=== PATIENT | male | born 1950 | race Hispanic/Latino ===

== ENCOUNTER 2017-10-16 16:05 | Inpatient (IN) | payer OTHER, MEDICARE ==
[~2017-10-16] VITALS: Ht 180.3 cm; Wt 81.6 kg
[2017-10-16] MEDS: SUCRALFATE 1 GM TAB PO SCH (06:31)
[~2017-10-16 16:05] MED LIST: ATRIPLA TABLET1 TAB PO; BACTRIM DS TAB1 EACH PO; CARAFATE1 GM PO; DIFLUCAN200 MG PO; GLIPIZIDE-METF1 EACH PO; GLYBURID-METFO1 EACH PO; LISINOPRIL10 MG PO; MEN'S ONE DAIL1 EACH PO; OMEPRAZOLE40 MG PO; PANTOPRAZOLE SO40 MG PO; PHENERGAN25 MG/1 M1 PO; STRIBILD TABLE1 EACH PO
[2017-10-16 17:11] LABS: CLARITY,URINE CLOUDY (CLEAR); COLOR,URINE YELLOW (YELLOW); KETONES,URINE NEGATIVE (NEGATIVE); LEUKOCYTE ESTERASE ,URINE 1+ (NEGATIVE); NITRITE,URINE NEGATIVE (NEGATIVE); PROTEIN,URINE DIPSTICK 1+ (NEGATIVE)
[2017-10-16 17:12] LABS: BILIRUBIN,URINE NEGATIVE (NEGATIVE); URINE UROBILINOGEN 0.2 mg/dL (0.2 - 1)
[2017-10-16 17:16] LABS: BACTERIA,URINE MANY /HPF
[2017-10-16 17:28] VITALS: BP 124/71
[2017-10-16 17:38] VITALS: BP 124/71
[2017-10-16 17:56] LABS: BASOPHILS % 0.3 % (0.0-1.0); EOSINOPHILS % 0.1 % (0.0-6.0); HEMATOCRIT 36.7 % (38.2-49.6); HEMOGLOBIN 12.4 g/dL (14.0-18.0); LYMPHOCYTES # (AUTO) 0.7 (1.0-3.2); LYMPHOCYTES % 4.3 % (18.0-39.1); MEAN CORPUSCULAR HEMOGLOBIN 29.2 pg (28-32); MEAN CORPUSCULAR HGB CONC 33.8 g/dL (31-35); MEAN CORPUSCULAR VOLUME 86.4 fL (81-99); MONOCYTES % 6.8 % (4.4-11.3); NEUTROPHILS # (AUTO) 13.4 (2.1-6.9); PLATELET COUNT 180 x10e3/uL (140-360); RED BLOOD COUNT 4.25 x10e6/uL (4.3-5.7); RED CELL DISTRIBUTION WIDTH 13.6 % (11.7-14.4)
[2017-10-16] MEDS: SODIUM CHLORIDE 0.9% 1000ML 1,000 ML IV SCH (17:59)
[2017-10-16] MEDS ORDERED: PROMETHAZINE HCL (IM) 25 MG/ML VIAL IM PRN (18:00)
[2017-10-16 18:16] LABS: ALANINE AMINOTRANSFERASE 12 IU/L (0-55); ALBUMIN 3.5 g/dL (3.5-5.0); ALBUMIN/GLOBULIN RATIO 0.9 (0.8-2.0); ALKALINE PHOSPHATASE 68 IU/L (40-150); ANION GAP 11.8 mmol/L (8-16); BLOOD UREA NITROGEN 14 mg/dL (7-26); BUN/CREATININE RATIO 12 (6-25); CARBON DIOXIDE 22 mmol/L (22-29); CHLORIDE 101 mmol/L (98-107); CREATININE, SERUM 1.17 mg/dL (0.72-1.25); EST GLOMERULAR FILTRATION RATE > 60 ML/MIN (60-); GLUCOSE 133 mg/dL (74-118); POTASSIUM 3.8 mmol/L (3.5-5.1); SODIUM 131 mmol/L (136-145)
[2017-10-16 18:27] LABS: ERYTHROCYTE SEDIMENTATION RATE 36 mm/hr (0-13)
[2017-10-16 20:34] VITALS: BP 132/66
[2017-10-16] MEDS ORDERED: MEROPENEM 1GRAM 1 GM in SODIUM CHLORIDE 0.9% 100 ML 100 ML IV SCH (21:00)
--- NOTE | 2017-10-16 21:32 | History and Physical ---
REASON FOR CONSULTATION: Fever, chills, abdominal pain. HISTORY OF PRESENT ILLNESS: This is a patient who is a well-known to me 67-year-old gentleman with history of HIV, history of hepatitis C. The patient comes into my office today with fever and chills for 3 days, pain in his back bilaterally. The urine he said is more like pus. Not feeling well. When he was in my office, he looked quite sick. I felt he needed to be admitted for IV fluid, IV antibiotic. So, the patient is being admitted. He is just complaining of not feeling well, fever and chills. PAST MEDICAL HISTORY: Significant for HIV, but he is well treated. Hepatitis C, which was also treated. History of syphilis, also treated. Neuropathy. PAST SURGICAL HISTORY: Denies. ALLERGIES: NKA. SOCIAL HISTORY: There is no smoking, drug abuse, alcohol abuse. He is . FAMILY HISTORY: Otherwise noncontributory. REVIEW OF SYSTEMS HEENT: There is no headache, visual changes, hearing changes. GI: There is no nausea, no vomiting, no diarrhea. CARDIAC: There is no arrhythmia. NEURO: No seizure activity. SKIN: There is no rash. JOINTS: There is no erythema or edema. He does have chronic aches and pain. He does take Vicodin p.r.n. PHYSICAL EXAMINATION GENERAL: He is currently alert, oriented, does not seem to be in acute distress. VITAL SIGNS: Stable. He was febrile in the office at 101. HEENT: He does not appear icteric. Normocephalic. NECK: Supple. No JVD, no lymphadenopathy, no thyromegaly. CHEST: Clear bilaterally. HEART: S1 and S2. No S3 or S4, no murmur. ABDOMEN: Soft. Bowel sounds present. No tenderness. He did have CVA tenderness bilaterally. EXTREMITIES: No edema. SKIN: No rash. IMPRESSION 1. Urinary tract infection, pyelonephritis. The plan is to admit. Obtain blood cultures, urine cultures. The patient is immunocompromised. Will put him on meropenem after we obtain the cultures. 2. Human immunodeficiency virus. Continue all his medications. 3. Neuropathy. Continue all his medications. Discussed with the patient, answered all his questions. Job#: [id number] EV
[2017-10-16] MEDS: MEROPENEM 1 GM VIAL IV SCH (21:35)
[2017-10-16] MEDS: ACETAMINOPHEN 325 MG TAB PO PRN (22:32)
[2017-10-16] MEDS: HYDROCODONE/APAP 10MG-325MG TAB PO PRN (22:36)
[2017-10-17] MEDS: SUCRALFATE 1 GM TAB PO SCH ×5 (00:16→22:59)
[2017-10-17 00:44] VITALS: BP 102/6
[2017-10-17] MEDS: SODIUM CHLORIDE 0.9% 1000ML 1,000 ML IV SCH ×2 (05:35→07:12)
[2017-10-17 05:54] VITALS: BP 119/66
[2017-10-17] MEDS: HYDROCODONE/APAP 10MG-325MG TAB PO PRN ×3 (07:25→20:48)
[2017-10-17] MEDS: PANTOPRAZOLE SOD 40 MG TABEC PO SCH (07:25)
[2017-10-17 08:00] VITALS: BP 115/76
[2017-10-17] MEDS: MEROPENEM 1 GM VIAL IV SCH ×2 (09:35→20:48)
[2017-10-17] MEDS: LISINOPRIL 10 MG TAB PO SCH (09:35)
[2017-10-17 12:00] VITALS: BP 95/60
[2017-10-17 16:00] VITALS: BP 100/63
[2017-10-17] MEDS: ACETAMINOPHEN 325 MG TAB PO PRN (16:43)
[2017-10-17 20:45] VITALS: BP 106/57
[2017-10-18] VITALS: BP 124/73
[2017-10-18] MEDS: ACETAMINOPHEN 325 MG TAB PO PRN ×2 (04:18→17:45)
[2017-10-18] MEDS: HYDROCODONE/APAP 10MG-325MG TAB PO PRN ×3 (04:18→17:40)
[2017-10-18] MEDS: SUCRALFATE 1 GM TAB PO SCH ×3 (05:31→17:41)
[2017-10-18 08:01] VITALS: BP 114/64
[2017-10-18] MEDS: MEROPENEM 1 GM VIAL IV SCH (08:25)
[2017-10-18] MEDS: PANTOPRAZOLE SOD 40 MG TABEC PO SCH (08:25)
[2017-10-18] MEDS: SODIUM CHLORIDE 0.9% 1000ML 1,000 ML IV SCH (08:25)
[2017-10-18] MEDS: LISINOPRIL 10 MG TAB PO SCH (08:26)
[2017-10-18 10:47] VITALS: BP 114/64
--- NOTE | 2017-10-18 11:52 | Discharge Summary ---
This is a 67-year-old gentleman who was admitted to [facility] on 10/16/2017 with fever, chills and abdominal pain. This is a patient of Dr. Rik Mendez. The patient was seen in the office, and then the patient was instructed to report to the emergency department at [facility]. He has a history of HIV, hepatitis C, history of syphilis, history of neuropathy, which have been treated. He is complaining of pus from the urine and some abdominal discomfort. He was running a 101.1 temperature pretty much on admission. His labs showed elevated white count of 15.21, platelets 180, hemoglobin 12.4, creatinine 1.17, potassium 3.8, sodium 131. His blood culture came back negative so far, and the urine showed E. coli more than 100,000, which was sensitive to a lot of antibiotics including the Levaquin and ciprofloxacin with moiety of less or equal to 1. There are no radiology studies at the present time. The patient is significantly improved. He had no complaint of abdominal pain or dysuria yesterday when I saw him, and the same is for today. He ambulates around the hospital and no complication. Fever has resolved. He seems alert and oriented in fair and stable condition. The patient will be discharged to home with ciprofloxacin for 2 weeks 500 twice a day and have him follow up with Dr. Rik Mendez in the office in 2 weeks after discharge. Discharge condition is fair and stable with improvement in admitting diagnosis, which is the UTI. The patient was instructed to report to the nearest ER if medical complications arise. Case was also discussed with Dr. Rik Mendez in detail. Dictated by: LILIAN Mcgowan RIK MENDEZ MD Job#: [id number]
[2017-10-18 12:00] VITALS: BP 111/69
[2017-10-18] MEDS ORDERED: CIPRO500 MG PO (13:05)
[2017-10-18 16:01] VITALS: BP 128/77
== END 2017-10-18 18:16 | disposition home or self-care (01) | DRG 690 ==
LOC: MED/SURG2 16:05
PROVIDERS: ADMIT Internal Medicine Infectious Disease; ATTEND Internal Medicine Infectious Disease
DX: N10 Acute pyelonephritis (principal); Z21 Asymptomatic human immunodeficiency virus [HIV] infection status; G62.9 Polyneuropathy, unspecified; B19.20 Unspecified viral hepatitis C without hepatic coma
CPT/HCPCS: 36415; 80053; 81001; 82948; 85025; 85651; 86140; 87040; 87086; 87186; J2185; J7030

== ENCOUNTER → 2021-01-21 | Day surgery (SDC) | payer OTHER ==
[2021-01-19 08:32] LABS: BASOPHILS # (AUTO) 0.1 (0.0-0.1); BASOPHILS % 0.7 % (0.0-1.0); EOSINOPHILS # (AUTO) 0.2 (0.0-0.4); EOSINOPHILS % 2.7 % (0.0-6.0); HEMATOCRIT 35.9 % (38.2-49.6); HEMOGLOBIN 11.1 g/dL (14.0-18.0); LYMPHOCYTES % 12.3 % (18.0-39.1); MEAN CORPUSCULAR HEMOGLOBIN 25.6 pg (28-32); MEAN CORPUSCULAR HGB CONC 30.9 g/dL (31-35); MEAN CORPUSCULAR VOLUME 82.9 fL (81-99); MONOCYTES # (AUTO) 0.6 (0.2-0.8); MONOCYTES % 6.8 % (4.4-11.3); NEUTROPHILS # (AUTO) 6.2 (2.1-6.9); PLATELET COUNT 248 x10e3/uL (140-360); RED BLOOD COUNT 4.33 x10e6/uL (4.3-5.7); RED CELL DISTRIBUTION WIDTH 15.3 % (11.7-14.4)
[2021-01-19 09:19] LABS: ANION GAP 15.8 mmol/L (8-16); CALCIUM 9.1 mg/dL (8.4-10.2); CREATININE, SERUM 1.05 mg/dL (0.72-1.25); POTASSIUM 3.8 mmol/L (3.5-5.1)
[~2021-01-21] MED LIST changes: +BELLADONNA/OPIUM 30 MG SUPP RC ONE; +CEFTRIAXONE 1 GM VIAL ONE; +CIPRO500 MG PO; +DEXAMETHASONE SOD PHOS INJ 4 MG/ML VIAL ONE; +DOVATO 50-3001 EACH PO; +EPHEDRINE SULFATE INJ 50 MG/ML VIAL ONE; +FLOMAX0.4 MG PO; +GENTAMICIN 80MG/NS 100 ML 200 ML IV ONE; +IOPAMIDOL 300MG/ML 50ML INFUS..BTL IV ONE; +LIDOCAINE HCL 2% LOCAL INJ 5 ML SDV VIAL INJ ONE; +LYRICA50 MG PO; +METFORMIN HCL500 MG PO; +ONDANSETRON HCL INJ 2MG/ML 2ML 2 MG/ML VIAL ONE; +PHENAZOPYRIDINE HCL 100 MG TAB ONE; +POVIDONE IODINE 0.05% 0.05 % ML PO ONE; +PROPOFOL IV EMULSION 10 MG/ML 20 ML VIAL ONE; +SEVOFLURANE INHAL SOLN 250 ML PEN BTL ONE; +SODIUM CHLORIDE 0.9% 50ML 50 ML ONE; +VIT B PO; +VIT C PO
[2021-01-21 12:00] VITALS: BP 119/70
== END | disposition home or self-care (01) ==
LOC: OR 09:32
PROVIDERS: ATTEND Urology
DX: N40.1 Benign prostatic hyperplasia with lower urinary tract symptoms (principal); N13.8 Other obstructive and reflux uropathy; R39.14 Feeling of incomplete bladder emptying; N39.0 Urinary tract infection, site not specified; N32.89 Other specified disorders of bladder; E11.22 Type 2 diabetes mellitus with diabetic chronic kidney disease; I12.9 Hypertensive chronic kidney disease with stage 1 through stage 4 chronic kidney disease, or unspecified chronic kidney disease; N18.9 Chronic kidney disease, unspecified; Z21 Asymptomatic human immunodeficiency virus [HIV] infection status; I45.10 Unspecified right bundle-branch block; I25.10 Atherosclerotic heart disease of native coronary artery without angina pectoris; K21.9 Gastro-esophageal reflux disease without esophagitis; M19.90 Unspecified osteoarthritis, unspecified site; F17.210 Nicotine dependence, cigarettes, uncomplicated; Z01.810 Encounter for preprocedural cardiovascular examination; Z01.812 Encounter for preprocedural laboratory examination; Z01.818 Encounter for other preprocedural examination; Z20.822 Contact with and (suspected) exposure to COVID-19; Z79.84 Long term (current) use of oral hypoglycemic drugs; Z86.19 Personal history of other infectious and parasitic diseases
CPT/HCPCS: 52005; C9740; 36415; 71046; 74420; 80048; 85025; 87086; 87186; 93005; C1758; J0696; J1100; J1580; J2001; J2405; L8699; U0002

== ENCOUNTER 2021-05-01 07:25 | Inpatient (IN) | payer OTHER, MEDICARE ==
[~2021-05-01] VITALS: Ht 180.3 cm; Wt 81.6 kg
[~2021-05-01 07:25] MED LIST changes: -BELLADONNA/OPIUM 30 MG SUPP RC ONE; -CEFTRIAXONE 1 GM VIAL ONE; -DEXAMETHASONE SOD PHOS INJ 4 MG/ML VIAL ONE; -EPHEDRINE SULFATE INJ 50 MG/ML VIAL ONE; -GENTAMICIN 80MG/NS 100 ML 200 ML IV ONE; -IOPAMIDOL 300MG/ML 50ML INFUS..BTL IV ONE; -LIDOCAINE HCL 2% LOCAL INJ 5 ML SDV VIAL INJ ONE; -ONDANSETRON HCL INJ 2MG/ML 2ML 2 MG/ML VIAL ONE; -PHENAZOPYRIDINE HCL 100 MG TAB ONE; -POVIDONE IODINE 0.05% 0.05 % ML PO ONE; -PROPOFOL IV EMULSION 10 MG/ML 20 ML VIAL ONE; -SEVOFLURANE INHAL SOLN 250 ML PEN BTL ONE; -SODIUM CHLORIDE 0.9% 50ML 50 ML ONE
[2021-05-01 08:10] LABS: BASOPHILS # (AUTO) 0.1 (0.0-0.1); BASOPHILS % 0.8 % (0.0-1.0); EOSINOPHILS # (AUTO) 0.1 (0.0-0.4); EOSINOPHILS % 1.6 % (0.0-6.0); HEMATOCRIT 40.2 % (38.2-49.6); HEMOGLOBIN 13.3 g/dL (14.0-18.0); LYMPHOCYTES # (AUTO) 1.2 (1.0-3.2); MEAN CORPUSCULAR HEMOGLOBIN 28.8 pg (28-32); MEAN CORPUSCULAR HGB CONC 33.1 g/dL (31-35); MONOCYTES # (AUTO) 0.7 (0.2-0.8); MONOCYTES % 7.9 % (4.4-11.3); NEUTROPHILS # (AUTO) 6.3 (2.1-6.9); NEUTROPHILS % 75.5 % (38.7-80.0); PLATELET COUNT 232 x10e3/uL (140-360); RED BLOOD COUNT 4.62 x10e6/uL (4.3-5.7); RED CELL DISTRIBUTION WIDTH 16.9 % (11.7-14.4)
[2021-05-01 08:13] LABS: INR 1.05; PARTIAL THROMBOPLASTIN TIME 28.2 seconds (23.8-35.5); PROTHROMBIN TIME 14.5 seconds (11.9-14.5)
[2021-05-01 08:26] LABS: SALICYLATE < 5.0 mg/dL (0-30)
[2021-05-01 08:28] LABS: ALBUMIN 3.6 g/dL (3.5-5.0); ALBUMIN/GLOBULIN RATIO 1.1 (0.8-2.0); ANION GAP 14.1 mmol/L (8-16); CALCIUM 9.1 mg/dL (8.4-10.2); CREATININE, SERUM 0.97 mg/dL (0.72-1.25); MAGNESIUM 1.8 MG/DL (1.3-2.1); POTASSIUM 3.1 mmol/L (3.5-5.1)
[2021-05-01 08:46] LABS: CLARITY,URINE SL CLOUDY (CLEAR); COLOR,URINE STRAW (YELLOW); KETONES,URINE NEGATIVE (NEGATIVE); LEUKOCYTE ESTERASE ,URINE NEGATIVE (NEGATIVE); NITRITE,URINE NEGATIVE (NEGATIVE); PROTEIN,URINE DIPSTICK NEGATIVE (NEGATIVE); URINE UROBILINOGEN 2 mg/dL (0.2 - 1)
[2021-05-01 08:47] LABS: CREATINE KINASE MB 3.9 ng/mL (0-5.0); THYROID STIMULATING HORMONE 1.517 uIU/mL (0.350-4.940)
[2021-05-01 08:56] LABS: AMPHETAMINES SCREEN,URINE NEGATIVE (NEGATIVE); BENZODIAZEPINES SCREEN,URINE NEGATIVE (NEGATIVE); PHENCYCLIDINE SCREEN,URINE NEGATIVE (NEGATIVE)
[2021-05-01 08:57] LABS: BACTERIA,URINE MODERATE /HPF; EPITHELIAL CELLS,URINE MODERATE /LPF; RBC,URINE 0-5 /HPF (0-5)
[2021-05-01] MEDS ORDERED: POTASSIUM CHLORIDE 20 MEQ TAB CR PO NR (09:30)
[2021-05-01] MEDS ORDERED: IOPAMIDOL 370 MG/ML 200 ML INFUS..BTL INJ ONE (09:52)
[2021-05-01] MEDS ORDERED: SODIUM CHLORIDE 0.9% 50ML 50 ML ONE (09:52)
[2021-05-01] MEDS ORDERED: LEVETIRACETAM 500MG/5ML VIAL 1,000 MG in SODIUM CHLORIDE 0.9% 100 ML IV ONE (10:15)
[2021-05-01] MEDS: DEXAMETHASONE SOD PHOS 10 MG/1 ML VIAL IV NR ×2 (10:56→11:02)
[2021-05-01] MEDS ORDERED: ONDANSETRON HCL INJ 2MG/ML 2ML 2 MG/ML VIAL IV PRN (11:00)
[2021-05-01] MEDS ORDERED: SODIUM CHLORIDE 0.9% 1000ML 1,000 ML IV SCH (11:00)
[2021-05-01] MEDS ORDERED: GADOBENATE DIMEGLUMINE 1 ML IV ONE (11:10)
[2021-05-01] MEDS ORDERED: KETOROLAC TROMETHAMINE 30 MG/ML VIAL IV NR (11:27)
[2021-05-01] MEDS ORDERED: KETOROLAC TROMETHAMINE 30 MG/ML VIAL ONE (11:39)
[2021-05-01] MEDS ORDERED: Morphine 2mg Syringe 2 MG/ML SYR IV NR (12:00)
[2021-05-01] MEDS ORDERED: ONDANSETRON HCL INJ 2MG/ML 2ML 2 MG/ML VIAL IV NR (12:00)
[2021-05-01 14:28] LABS: CREATINE KINASE MB 2.8 ng/mL (0-5.0)
[2021-05-01 14:30] VITALS: BP 147/92
[2021-05-01] MEDS ORDERED: ATORVASTATIN CA10 MG PO (14:38)
[2021-05-01] MEDS ORDERED: LORAZEPAM 1 MG TAB PO NR (16:15)
[2021-05-01] MEDS: DEXAMETHASONE 4 MG TAB PO SCH ×2 (17:09→23:00)
[2021-05-01] MEDS: Ampicillin INJ 2 GM in SODIUM CHLORIDE 0.9% 100 ML IV SCH ×2 (17:34→23:00)
[2021-05-01] MEDS ORDERED: ACYCLOVIR 200 MG CAP PO SCH (18:00)
[2021-05-01] MEDS ORDERED: METFORMIN HCL 500 MG TAB PO SCH (18:20)
[2021-05-01] MEDS: ACYCLOVIR SODIUM IV SCH ×2 (18:28→21:32)
[2021-05-01] MEDS: SODIUM CHLORIDE 0.9% IV SCH ×2 (18:28→21:32)
[2021-05-01] MEDS ORDERED: DEXTROSE 50% SYRINGE 50 ML IV PRN (18:30)
[2021-05-01] MEDS ORDERED: ZIPRASIDONE 20 MG VIAL IM STA (19:43)
[2021-05-01 20:00] VITALS: BP 149/104
[2021-05-01] MEDS: ATORVASTATIN 10 MG TAB PO SCH (20:48)
[2021-05-01] MEDS: INSULIN LISPRO 100 UNIT/1 ML 3ML VIAL SQ SCH (20:59)
[2021-05-01 21:00] VITALS: BP 149/104
[2021-05-01] MEDS: TRIMETHOPRIM/SULFAMETHOXAZOLE 160 MG in DEXTROSE 5% 250ML 250 ML IV SCH (21:04)
[2021-05-02] VITALS (10 sets, daily range): BP systolic 141–168; BP diastolic 75–99
[2021-05-02 05:11] LABS: HEMATOCRIT 37.8 % (38.2-49.6); HEMOGLOBIN 12.8 g/dL (14.0-18.0); LYMPHOCYTES # (AUTO) 0.6 (1.0-3.2); LYMPHOCYTES % 9.5 % (18.0-39.1); MEAN CORPUSCULAR HEMOGLOBIN 29.1 pg (28-32); MEAN CORPUSCULAR HGB CONC 33.9 g/dL (31-35); MEAN CORPUSCULAR VOLUME 85.9 fL (81-99); MONOCYTES # (AUTO) 0.4 (0.2-0.8); MONOCYTES % 6.6 % (4.4-11.3); NEUTROPHILS # (AUTO) 4.9 (2.1-6.9); NEUTROPHILS % 83.7 % (38.7-80.0); PLATELET COUNT 222 x10e3/uL (140-360); RED CELL DISTRIBUTION WIDTH 16.6 % (11.7-14.4)
[2021-05-02] MEDS: ZIPRASIDONE 20 MG VIAL IM PRN ×3 (05:15→21:10)
[2021-05-02] MEDS: TRIMETHOPRIM/SULFAMETHOXAZOLE 160 MG in DEXTROSE 5% 250ML 250 ML IV SCH ×3 (05:17→22:55)
[2021-05-02] MEDS: SODIUM CHLORIDE 0.9% IV SCH ×3 (05:18→22:55)
[2021-05-02] MEDS: ACYCLOVIR SODIUM IV SCH ×3 (05:18→22:55)
[2021-05-02 05:33] LABS: ALBUMIN 3.5 g/dL (3.5-5.0); ANION GAP 16.4 mmol/L (8-16); CALCIUM 8.9 mg/dL (8.4-10.2); CREATININE, SERUM 0.84 mg/dL (0.72-1.25); MAGNESIUM 1.9 MG/DL (1.3-2.1); POTASSIUM 3.4 mmol/L (3.5-5.1)
[2021-05-02 05:49] LABS: FERRITIN 139.15 ng/mL (21.81-274.66)
[2021-05-02 06:01] LABS: CREATINE KINASE MB 2.7 ng/mL (0-5.0)
[2021-05-02] MEDS: Ampicillin INJ 2 GM in SODIUM CHLORIDE 0.9% 100 ML IV SCH ×4 (06:18→23:54)
[2021-05-02] MEDS: DEXAMETHASONE 4 MG TAB PO SCH ×3 (06:22→17:30)
[2021-05-02] MEDS: INSULIN LISPRO 100 UNIT/1 ML 3ML VIAL SQ SCH ×4 (07:30→21:28)
[2021-05-02] MEDS: PREGABALIN 50 MG CAP PO SCH (09:00)
[2021-05-02] MEDS: TAMSULOSIN HCL 0.4 MG CAP PO SCH (09:00)
[2021-05-02] MEDS: PANTOPRAZOLE SOD 40 MG TABEC PO SCH (09:00)
[2021-05-02] MEDS ORDERED: LISINOPRIL 10 MG TAB PO SCH (09:00)
[2021-05-02 12:18] LABS: TUBE NUMBER 3
[2021-05-02 12:19] LABS: WHITE BLOOD CELL,CSF 10 cells/uL (0-5)
[2021-05-02 12:22] LABS: APPEARANCE,CSF CLEAR (CLEAR); COLOR,CSF COLORLESS (COLORLESS)
[2021-05-02 12:51] LABS: TOTAL PROTEIN,CSF 312.8 mg/dL (15-40)
[2021-05-02] MEDS: SODIUM CHLORIDE 0.9% 1000ML 1,000 ML IV SCH (15:45)
[2021-05-02 16:42] LABS: LYMPHOCYTES,CSF 22 % (40-80); MONOCYTES,CSF 4 %; NEUTROPHILS,CSF 74 % (0-6)
[2021-05-02] MEDS: DEXAMETHASONE SOD PHOS INJ 4 MG/ML SDV IV SCH (21:09)
[2021-05-02] MEDS: ATORVASTATIN 10 MG TAB PO SCH (21:09)
[2021-05-03] VITALS: BP 158/106
[2021-05-03] MEDS: DEXAMETHASONE SOD PHOS INJ 4 MG/ML SDV IV SCH ×3 (02:05→14:00)
[2021-05-03 04:00] VITALS: BP 178/95
[2021-05-03] MEDS: SODIUM CHLORIDE 0.9% 1000ML 1,000 ML IV SCH ×2 (05:05→18:25)
[2021-05-03] MEDS: Ampicillin INJ 2 GM in SODIUM CHLORIDE 0.9% 100 ML IV SCH ×3 (05:05→17:38)
[2021-05-03] MEDS: TRIMETHOPRIM/SULFAMETHOXAZOLE 160 MG in DEXTROSE 5% 250ML 250 ML IV SCH ×2 (05:05→15:00)
[2021-05-03] MEDS: ACYCLOVIR SODIUM IV SCH ×2 (05:06→14:00)
[2021-05-03] MEDS: SODIUM CHLORIDE 0.9% IV SCH ×2 (05:06→14:00)
[2021-05-03 07:15] LABS: BASOPHILS % 0.2 % (0.0-1.0); EOSINOPHILS % 0.1 % (0.0-6.0); HEMATOCRIT 41.6 % (38.2-49.6); HEMOGLOBIN 14.3 g/dL (14.0-18.0); LYMPHOCYTES # (AUTO) 0.9 (1.0-3.2); LYMPHOCYTES % 10.1 % (18.0-39.1); MEAN CORPUSCULAR HEMOGLOBIN 28.9 pg (28-32); MEAN CORPUSCULAR HGB CONC 34.4 g/dL (31-35); MEAN CORPUSCULAR VOLUME 84.2 fL (81-99); MONOCYTES # (AUTO) 0.6 (0.2-0.8); MONOCYTES % 6.8 % (4.4-11.3); NEUTROPHILS # (AUTO) 7.3 (2.1-6.9); NEUTROPHILS % 82.5 % (38.7-80.0); PLATELET COUNT 264 x10e3/uL (140-360); RED BLOOD COUNT 4.94 x10e6/uL (4.3-5.7); RED CELL DISTRIBUTION WIDTH 17.3 % (11.7-14.4)
[2021-05-03] MEDS: INSULIN LISPRO 100 UNIT/1 ML 3ML VIAL SQ SCH ×3 (07:30→16:30)
[2021-05-03 07:39] LABS: ALBUMIN 3.8 g/dL (3.5-5.0); ALBUMIN/GLOBULIN RATIO 1.1 (0.8-2.0); ANION GAP 16.2 mmol/L (8-16); CALCIUM 9.5 mg/dL (8.4-10.2); CREATININE, SERUM 0.96 mg/dL (0.72-1.25); POTASSIUM 3.2 mmol/L (3.5-5.1)
[2021-05-03] MEDS: PANTOPRAZOLE SOD 40 MG TABEC PO SCH (09:00)
[2021-05-03] MEDS: TAMSULOSIN HCL 0.4 MG CAP PO SCH (09:00)
[2021-05-03] MEDS: PREGABALIN 50 MG CAP PO SCH (09:00)
[2021-05-03] MEDS ORDERED: FERROUS SULFATE 325 MG TAB PO SCH (09:00)
[2021-05-03 09:13] VITALS: BP 154/102
[2021-05-03 09:18] VITALS: BP 154/102
[2021-05-03] MEDS ORDERED: HYDRALAZINE HCL 20 MG/ML VIAL IV PRN (09:45)
[2021-05-03] MEDS ORDERED: POTASSIUM CHLORIDE 10MEQ/100ML 400 ML IV ONE (10:00)
[2021-05-03] MEDS ORDERED: POTASSIUM CHLORIDE 20 MEQ TAB CR PO ONE (10:15)
[2021-05-03 13:39] VITALS: BP 159/102
[2021-05-03 16:27] VITALS: BP 132/87
[2021-05-03] MEDS ORDERED: LEVETIRACETAM 500 MG TAB PO SCH (17:00)
[2021-05-04] MEDS ORDERED: LISINOPRIL 20 MG TAB PO SCH (09:00)
== END 2021-05-03 20:49 | disposition short-term general hospital (02) | DRG 974 ==
LOC: ER 08:14 → ERHOLD 10:56 → MED/SURG2 14:18
PROVIDERS: ADMIT Internal Medicine; ATTEND Internal Medicine
PROC: 009U3ZX Drainage of Spinal Canal, Percutaneous Approach, Diagnostic (ICD-10-PCS; principal; 2021-05-02)
DX: G93.9 Disorder of brain, unspecified (principal); G93.6 Cerebral edema; B20 Human immunodeficiency virus [HIV] disease; B00.4 Herpesviral encephalitis; G93.41 Metabolic encephalopathy; B58.9 Toxoplasmosis, unspecified; E44.0 Moderate protein-calorie malnutrition; E78.5 Hyperlipidemia, unspecified; E11.9 Type 2 diabetes mellitus without complications; Z20.822 Contact with and (suspected) exposure to COVID-19; R10.9 Unspecified abdominal pain; Z79.4 Long term (current) use of insulin; Z68.25 Body mass index [BMI] 25.0-25.9, adult
CPT/HCPCS: 36415; 62328; 70450; 70553; 71045; 71250; 74177; 74470; 80053; 80307; 80320; 80329; 81001; 82140; 82150; 82550; 82553; 82607; 82728; 82746; 82945; 82948; 83540; 83690; 83735; 84157; 84443; 84466; 84484; 85025; 85610; 85730; 86592; 86606; 86612; 86644; 86645; 86698; 86777; 86778; 87040; 87070; 87086; 87116; 87205; 87206; 87529; 88112; 88305; 89051; 93005; 94799; 96372; 99284; J0360; J1100; J1885; J2270; J2405; J3480; J3486; J7030; J7050; Q9967; U0002